=== PATIENT | female | born 1975 | race Caucasian/White ===

== ENCOUNTER → 2020-04-13 | Day surgery (SDC) | payer MEDICARE, MEDICAID ==
[~2020-04-13] MED LIST: COLACE100 MG PO; VENLAFAXINE H37.5 M2 PO
--- NOTE | ~2020-04-13 | OP ---
[facility] [address] [place] [address] OPERATIVE REPORT Name: FOX FERNANDEZ [id number] Ad[facility]: 04/13/20 Attend Phys: Luis Manuel Cuevas Discharge: Date of : 71 Report #: [id number] THIS REPORT FOR: //name// cc: Murphy Rosas MD, Bruce D. MD ~ CC: Murphy Cuevas DATE OF SERVICE: 04/13/2020 PREOPERATIVE DIAGNOSIS: Right posterior scalp mass. POSTOPERATIVE DIAGNOSIS: Right posterior scalp mass. OPERATION: Excision of benign 3 cm right posterior scalp mass. SURGEON: Luis Manuel Cuevas MD ANESTHESIA: General. ESTIMATED BLOOD LOSS: 10 mL. SPECIMEN: Scalp mass. DESCRIPTION OF PROCEDURE: After informed consent was obtained, the patient was brought to the operating room and placed supine. SCDs were placed and working, preoperative antibiotics were administered, general anesthesia was induced. The scalp was prepped and draped in the usual sterile fashion. A 3 cm incision was made over the palpable lesion. Dissection was made down to the capsule of the mass. This was an epidermal inclusion cyst. This was fully dissected around and excised. Skin was then reapproximated with 4-0 Monocryl in interrupted fashion. Sterile dressings were applied. COMPLICATIONS: None. DISPOSITION: The patient was taken to recovery in satisfactory condition. By: [id number] Cuevas MD /rober
[2020-04-13 11:48] LABS: HEMATOCRIT 42.4 % (37.0-47.0); HEMOGLOBIN 14.6 gm/dL (12.0-15.0); MCH 34.2 pg (26.0-34.0); MCHC 34.5 g/dL (28.0-37.0); MCV 99.2 fL (80.0-100.0); MPV 6.6 fl. (7.2-11.1); RBC 4.28 mil/uL (4.20-5.00); RDW-CV 12.8 % (10.5-14.5); WBC 4.5 thou/uL (4.0-11.0)
[2020-04-13 11:54] LABS: CALCIUM 8.4 mg/dL (8.5-10.1); CREATININE 0.9 mg/dL (0.6-1.3)
--- NOTE | 2020-04-17 15:11 | PATH ---
[facility] [address] [place] [address] PATHOLOGY RPT PROCEDURE Name: SUSY FERNANDEZ Room: [facility].R.#: [id number] Admission: 04/13/20 Date of : 71 Discharge: Report #: [id number] Path Case #: [id number] [facility] Accession Number: [id number] . 01 Material submitted: . scalp - SCALP MASS . 01 Clinical history: . BENIGN NEOPLASM SCALP . 02 Diagnosis: Benign scalp mass: - Benign skin with large pilar (trichilemmal) cyst showing calcification and evidence of rupture including chronic inflammation, foreign body-type granulomatous response and fibrosis. (JIHAN/db; 04/17/2020) LBQ 04/17/2020 1228 Local . 02 Electronically signed: . Brent Vincent MD, Pathologist NPI- [id number] . 01 Gross description: . The specimen is received in formalin, labeled "Susy Fernandez, benign scalp mass" and consists of a hairbearing elliptical segment of skin measuring 4.0 x 1.3 x 0.3 cm with a separate disrupted white garcia cystic structure measuring 3.2 x 3.2 x 2.1 cm. The cyst shows solid yellow white wall and is predominantly devoid of contents. [employer] sections are submitted in A1-A2. (SDY; 04/16/2020) SYU/SYU 04/16/2020 1252 Local . 02 Pathologist provided ICD-10: L72.11, L98.9, L90.5 . 02 CPT . 985430 Specimen Comment: A courtesy copy of this report has been sent to [phone], [phone] Specimen Comment: [phone] Specimen Comment: Report sent to / DR SANTIAGO Performed at: [address] [facility] [id number] MD Kirk Flannery MD Phone: [phone] Performed at: [address] [id number] [place] [address] PATHOLOGY RPT PROCEDURE Name: SUSY FERNANDEZ Room: [facility].R.#: [id number] Admission: 04/13/20 Date of : 71 Discharge: Report #: [id number] Path Case #: [id number] MD Brent Vincent MD Phone: [phone]
== END | disposition home or self-care (01) ==
LOC: M.SUR 11:18
PROVIDERS: ATTEND Surgery
DX: L72.11 Pilar cyst (principal); L98.9 Disorder of the skin and subcutaneous tissue, unspecified; L90.5 Scar conditions and fibrosis of skin; Z98.890 Other specified postprocedural states; Z79.899 Other long term (current) drug therapy